=== PATIENT | female | born 1945 | race Caucasian/White ===

== ENCOUNTER → 2019-01-13 | Outpatient (CLI) | payer MEDICARE ==
[~2019-01-13] MED LIST: ASPI81CH PO; ASPI81EC PO; BYETTA; DIGO.125 PO; ELIQUIS5 MG PO; EXEN10PI SQ; EXEN5PENI SQ; FURO20 PO; HYDACE5 PO; IBUP800 PO; LEVSOD175 PO; LORA2 PO; MECL25 PO; MEDR10 PO; METF850 PO; METO100ER PO; MULT50L PO; Norco 5-325 Ta1 EACH PO; OMEP20ER PO; ONDA8ODT MM; ROSU10TA PO; ROSU5 PO; RXLORA1 PO; RXONDA4ODT MM; SANCTURA PO; STOOL SOFTENER; TRAM50 PO; TROSPIUM 60 MG; TROSPIUM CHLORI60 MG PO; VALS80 PO; [UNRECOGNIZED DRUG - OTHER]
[2019-01-13 14:35] LABS: Creatinine, Urine Random 99.7 mg/dL (27.00-270.00); Protein, Urine Random 16.5 mg/dL (0.0-11.9)
== END | disposition home or self-care (01) ==
LOC: LAB 14:11 → LAB SHORT 14:11
PROVIDERS: Internal Medicine
DX: N28.9 Disorder of kidney and ureter, unspecified (principal)
CPT/HCPCS: 82570; 84156

== ENCOUNTER 2019-10-18 18:30 | Emergency (ER) | payer MEDICARE ==
[~2019-10-18] VITALS: Ht 172.7 cm; Wt 136.1 kg
[~2019-10-18 18:30] MED LIST changes: -DIGO.125 PO; +LANOXIN125 MCG PO; +SYNTHROID175 MCG PO
[2019-10-18] MEDS ORDERED: NITROGLYCERIN0.4 MG SL (19:40)
[2019-10-18] MEDS ORDERED: JARDIANCE10 MG PO (19:40)
[2019-10-18] MEDS ORDERED: LIRA0.6P SC (19:40)
[2019-10-18] MEDS ORDERED: Metformin HCl1000 MG PO (19:41)
[2019-10-18] MEDS ORDERED: ACYCLOVIR400 MG PO (19:41)
[2019-10-18] MEDS ORDERED: Spironolactone25 MG PO (19:41)
[2019-10-18] MEDS ORDERED: PIOG15 PO (19:45)
[2019-10-18] MEDS ORDERED: LOSARTAN POTAS100 MG PO (19:46)
[2019-10-18] MEDS ORDERED: TROSPIUM CHLORI20 MG PO (19:46)
[2019-10-18] MEDS ORDERED: Oysco-500500 MG PO (19:47)
[2019-10-18] MEDS ORDERED: MULTIPLE VITAM1 EACH PO (19:48)
[2019-10-18] MEDS ORDERED: ASCO500 PO (19:48)
[2019-10-18] MEDS ORDERED: Vitamin D2000 UNIT PO (19:49)
[2019-10-18] MEDS ORDERED: DOCU100 PO (19:49)
== END 2019-10-18 20:52 | disposition home or self-care (01) ==
LOC: ER 18:30
DX: S02.2XXA Fracture of nasal bones, initial encounter for closed fracture (principal); R58 Hemorrhage, not elsewhere classified; I10 Essential (primary) hypertension; E11.9 Type 2 diabetes mellitus without complications; E03.9 Hypothyroidism, unspecified; I48.91 Unspecified atrial fibrillation; Z88.8 Allergy status to other drugs, medicaments and biological substances; Z88.0 Allergy status to penicillin; Z88.2 Allergy status to sulfonamides; Z88.1 Allergy status to other antibiotic agents; Z79.899 Other long term (current) drug therapy; Z79.84 Long term (current) use of oral hypoglycemic drugs; Z79.01 Long term (current) use of anticoagulants; Z79.82 Long term (current) use of aspirin; W01.10XA Fall on same level from slipping, tripping and stumbling with subsequent striking against unspecified object, initial encounter
CPT/HCPCS: 70450; 72125; 99284-25; L0160

== ENCOUNTER 2019-10-21 10:23 | Day surgery (SDC) | payer MEDICARE ==
[~2019-10-21] VITALS: Ht 172.7 cm; Wt 137.9 kg
[~2019-10-21 10:23] MED LIST changes: +ACYCLOVIR400 MG PO; +ASCO500 PO; +DOCU100 PO; +JARDIANCE10 MG PO; +LIRA0.6P SC; +LOSARTAN POTAS100 MG PO; +MULTIPLE VITAM1 EACH PO; +Metformin HCl1000 MG PO; +NITROGLYCERIN0.4 MG SL; +Oysco-500500 MG PO; +PIOG15 PO; +Spironolactone25 MG PO; +TROSPIUM CHLORI20 MG PO; +Vitamin D2000 UNIT PO
== END 2019-10-21 13:59 | disposition home or self-care (01) ==
LOC: ORSCSDS 10:23
PROVIDERS: Otolaryngology
PROC: 0NSBXZZ Reposition Nasal Bone, External Approach (ICD-10-PCS; principal; 2019-10-21 12:00)
DX: S02.2XXA Fracture of nasal bones, initial encounter for closed fracture (principal); I10 Essential (primary) hypertension; E11.9 Type 2 diabetes mellitus without complications; E03.9 Hypothyroidism, unspecified; G47.33 Obstructive sleep apnea (adult) (pediatric); I50.9 Heart failure, unspecified; E66.01 Morbid (severe) obesity due to excess calories; Z68.42 Body mass index [BMI] 45.0-49.9, adult; Z79.01 Long term (current) use of anticoagulants; Z79.84 Long term (current) use of oral hypoglycemic drugs; Z79.899 Other long term (current) drug therapy
CPT/HCPCS: 82947; C9046; J1100; J2001; J2405; J2704; J3010; J7120

== ENCOUNTER 2021-01-14 11:28 | Emergency (ER) | payer MEDICARE ==
[~2021-01-14] VITALS: Ht 170.2 cm; Wt 129.3 kg
== END 2021-01-14 13:49 | disposition home or self-care (01) ==
LOC: ER 11:28
DX: M54.5 Low back pain (principal); I10 Essential (primary) hypertension; E11.9 Type 2 diabetes mellitus without complications; I48.91 Unspecified atrial fibrillation; E03.9 Hypothyroidism, unspecified; Z88.2 Allergy status to sulfonamides; Z88.6 Allergy status to analgesic agent; Z88.0 Allergy status to penicillin; Z88.1 Allergy status to other antibiotic agents; Z79.01 Long term (current) use of anticoagulants; Z79.899 Other long term (current) drug therapy; W18.30XA Fall on same level, unspecified, initial encounter
CPT/HCPCS: 70450; 72100; 72220; 99284-25

== ENCOUNTER 2021-02-25 13:28 | Emergency (ER) | payer MEDICARE ==
[~2021-02-25] VITALS: Ht 170.2 cm; Wt 127.0 kg
[2021-02-25 14:17] LABS: BASOPHILS ABSOLUTE AUTO 0.03 K/mm3 (0.00-0.23); BASOPHILS PERCENT AUTO 1 % (0-2); EOSINOPHILS ABSOLUTE AUTO 0.01 K/mm3 (0.00-0.68); EOSINOPHILS PERCENT AUTO 0 % (0-6); Hematocrit 42.9 % (33.0-51.0); Hemoglobin 14.5 g/dL (11.5-16.0); IMMATURE GRAN ABSOLUTE AUTO 0.05 K/mm3 (0.00-0.10); IMMATURE GRAN PERCENT AUTO 1 % (0-1); LYMPHOCYTES PERCENT AUTO 31 % (21-46); MONOCYTES ABSOLUTE AUTO 0.42 K/mm3 (0.16-1.47); MONOCYTES PERCENT AUTO 8 % (4-13); Mean Corpuscular HGB 28.8 pg (26.0-34.0); Mean Corpuscular HGB Conc 33.8 g/dL (31.5-36.5); Mean Corpuscular Volume 85 fL (80-100); Mean Platelet Volume 9.8 fL (9.1-12.4); NEUTROPHILS ABSOLUTE AUTO 3.05 K/mm3 (1.96-9.15); NEUTROPHILS PERCENT AUTO 59 % (41-73); Platelet Count 216 K/mm3 (150-400); RDW Standard Deviation 40.4 fL (35.1-46.3); Red Blood Cell Count 5.03 M/mm3 (3.80-5.20); White Blood Cell Count 5.16 K/mm3 (4.00-11.30)
[2021-02-25 14:28] LABS: Alanine Aminotransfer (ALT/SGP 32 U/L (12-78); Albumin, Blood 2.5 g/dL (3.4-5.0); Albumin/Globulin Ratio 0.5 (0.8-1.8); Alk Phos 113 U/L (50-136); Anion Gap 8 mmol/L (6-16); Aspartate Aminotrans (AST/SGOT 26 U/L (12-37); Bilirubin, Total 0.6 mg/dL (0.1-1.0); Blood Urea Nitrogen 11 mg/dL (8-24); Bun/Creatinine Ratio 14.8 (12.0-20.0); CO2, Blood 21 mmol/L (21-32); Calcium, Blood 9.6 mg/dL (8.5-10.1); Chloride, Blood 108 mmol/L (98-108); Creatinine, Blood 0.74 mg/dL (0.40-1.00); Globulin, Blood 5.2 g/dL (2.2-4.0); Glomerular Filtration Rate >60 (60-); Glucose, Blood 151 mg/dL (70-99); Potassium, Blood 3.7 mmol/L (3.5-5.5); Sodium, Blood 137 mmol/L (136-145); Total Protein, Blood 7.7 g/dL (6.4-8.2)
== END 2021-02-25 18:14 | disposition home or self-care (01) ==
LOC: ER 13:28
PROVIDERS: Physician Assistant
DX: U07.1 COVID-19 (principal); I10 Essential (primary) hypertension; E11.9 Type 2 diabetes mellitus without complications; I48.91 Unspecified atrial fibrillation; E03.9 Hypothyroidism, unspecified; Z79.01 Long term (current) use of anticoagulants; Z79.84 Long term (current) use of oral hypoglycemic drugs; Z79.899 Other long term (current) drug therapy
CPT/HCPCS: 36415; 71046; 80053; 85025; 99283-25

== ENCOUNTER 2021-02-27 21:37 | Observation (INO) | payer MEDICARE ==
[~2021-02-27] VITALS: Ht 167.6 cm; Wt 127.8 kg
[2021-02-27 22:06] LABS: BASOPHILS ABSOLUTE AUTO 0.04 K/mm3 (0.00-0.23); BASOPHILS PERCENT AUTO 1 % (0-2); EOSINOPHILS ABSOLUTE AUTO 0.09 K/mm3 (0.00-0.68); EOSINOPHILS PERCENT AUTO 1 % (0-6); Hematocrit 42.4 % (33.0-51.0); Hemoglobin 14.2 g/dL (11.5-16.0); Mean Corpuscular HGB 28.5 pg (26.0-34.0); Mean Corpuscular HGB Conc 33.5 g/dL (31.5-36.5); Mean Corpuscular Volume 85 fL (80-100); Mean Platelet Volume 9.6 fL (9.1-12.4); Platelet Count 255 K/mm3 (150-400); RDW Coefficient Variation 12.9 % (11.7-14.2); RDW Standard Deviation 39.9 fL (35.1-46.3); Red Blood Cell Count 4.98 M/mm3 (3.80-5.20); White Blood Cell Count 6.68 K/mm3 (4.00-11.30)
[2021-02-27 22:09] LABS: IMMATURE GRAN ABSOLUTE AUTO 0.08 K/mm3 (0.00-0.10); IMMATURE GRAN PERCENT AUTO 1 % (0-1); LYMPHOCYTES ABSOLUTE AUTO 2.84 K/mm3 (0.84-5.20); LYMPHOCYTES PERCENT AUTO 43 % (21-46); MONOCYTES ABSOLUTE AUTO 0.65 K/mm3 (0.16-1.47); MONOCYTES PERCENT AUTO 10 % (4-13); NEUTROPHILS ABSOLUTE AUTO 2.98 K/mm3 (1.96-9.15); NEUTROPHILS PERCENT AUTO 45 % (41-73)
[2021-02-27 22:19] LABS: Alanine Aminotransfer (ALT/SGP 32 U/L (12-78); Albumin, Blood 2.4 g/dL (3.4-5.0); Albumin/Globulin Ratio 0.5 (0.8-1.8); Alk Phos 112 U/L (50-136); Anion Gap 9 mmol/L (6-16); Aspartate Aminotrans (AST/SGOT 27 U/L (12-37); Bilirubin, Total 0.4 mg/dL (0.1-1.0); Blood Urea Nitrogen 19 mg/dL (8-24); Bun/Creatinine Ratio 20.3 (12.0-20.0); CO2, Blood 22 mmol/L (21-32); Calcium, Blood 10.4 mg/dL (8.5-10.1); Chloride, Blood 106 mmol/L (98-108); Creatinine, Blood 0.94 mg/dL (0.40-1.00); Globulin, Blood 5.3 g/dL (2.2-4.0); Glomerular Filtration Rate >60 (60-); Glucose, Blood 164 mg/dL (70-99); Potassium, Blood 3.7 mmol/L (3.5-5.5); Sodium, Blood 137 mmol/L (136-145); Total Protein, Blood 7.7 g/dL (6.4-8.2)
[2021-02-28 04:20] LABS: Hematocrit 37.4 % (33.0-51.0); Hemoglobin 12.4 g/dL (11.5-16.0); Mean Corpuscular HGB 28.4 pg (26.0-34.0); Mean Corpuscular HGB Conc 33.2 g/dL (31.5-36.5); Mean Corpuscular Volume 86 fL (80-100); Mean Platelet Volume 9.7 fL (9.1-12.4); Platelet Count 218 K/mm3 (150-400); RDW Coefficient Variation 12.8 % (11.7-14.2); RDW Standard Deviation 40.2 fL (35.1-46.3); Red Blood Cell Count 4.37 M/mm3 (3.80-5.20); White Blood Cell Count 5.74 K/mm3 (4.00-11.30)
[2021-02-28 04:40] LABS: Alanine Aminotransfer (ALT/SGP 25 U/L (12-78); Albumin, Blood 2.4 g/dL (3.4-5.0); Albumin/Globulin Ratio 0.6 (0.8-1.8); Alk Phos 90 U/L (50-136); Anion Gap 7 mmol/L (6-16); Aspartate Aminotrans (AST/SGOT 17 U/L (12-37); Bilirubin, Total 0.6 mg/dL (0.1-1.0); Blood Urea Nitrogen 17 mg/dL (8-24); Bun/Creatinine Ratio 21.3 (12.0-20.0); CO2, Blood 24 mmol/L (21-32); Calcium, Blood 9.7 mg/dL (8.5-10.1); Chloride, Blood 109 mmol/L (98-108); Globulin, Blood 4.2 g/dL (2.2-4.0); Glomerular Filtration Rate >60 (60-); Glucose, Blood 164 mg/dL (70-99); Potassium, Blood 3.4 mmol/L (3.5-5.5); Sodium, Blood 140 mmol/L (136-145); Total Protein, Blood 6.6 g/dL (6.4-8.2)
[2021-02-28 05:53] LABS: BASOPHILS ABSOLUTE MAN 0.05 K/mm3 (0.00-0.23); BASOPHILS PERCENT MAN 1 % (0-2); EOSINOPHILS ABSOLUTE MAN 0.05 K/mm3 (0.00-0.68); EOSINOPHILS PERCENT MAN 1 % (0-6); LYMPHOCYTES ABSOLUTE MAN 1.89 K/mm3 (0.84-5.20); LYMPHOCYTES PERCENT MAN 33 % (21-46); MONOCYTES ABSOLUTE MAN 0.45 K/mm3 (0.16-1.47); MONOCYTES PERCENT MAN 8 % (4-13); MYELOCYTE ABSOLUTE MAN 0.05 K/mm3 (0.00-0.00); MYELOCYTE PERCENT MAN 1 % (0-0); NEUTROPHILS ABSOLUTE MAN 3.21 K/mm3 (1.96-9.15); SEG NEUTROPHILS PERCENT MAN 56 % (41-73); TOTAL CELLS COUNTED 100
--- NOTE | 2021-02-28 16:47 | NUR ---
TELEPHONE ORDER GIVEN BY DR. RODARTE FOR [employer]STATIN CREAM FOR FELIPE YEAST.
--- NOTE | 2021-02-28 17:51 | NUR ---
SHIFT SUMMARY; ASSUMED CARE AT 0700, REPORT FROM SASHA CARDONA. A/A/OX4. SBA IN ROOM THROUGHOUT DAY. REPOSITIONS SELF NEEDED. REMAINS ON RA WITH SATS 97-98%. NO DIARRHEA DURING SHIFT PREVIOUSLY HAD. INSULIN COVERAGE NEEDED. PRODUCTIVE COUGH WITH CLEAR/DIM LUNG SOUNDS. NO ACUTE CHANGES DURING SHIFT. WILL CONTINUE TO MONITOR AND TREAT UNTIL CHANGE OF SHIFT.
[2021-02-28 20:56] LABS: Source, Urine Clean Catch
[2021-02-28 21:00] LABS: Bilirubin, Urine Neg (Neg); Blood, Urine Neg (Neg); Glucose Qualitative, Urine Neg (Neg); Ketones, Urine Neg (Neg); Leukocyte Esterase, Urine 1+ (Neg); Nitrite, Urine Neg (Neg); Protein, Urine Neg (Neg); Specific Gravity, Urine 1.005 (1.003-1.022); Urobilinogen, Urine NORM (Normal)
[2021-02-28 21:48] LABS: Appearance, Urine Clear (Clear); Color, Urine Yellow (P-Yellow)
[2021-02-28 21:50] LABS: Bacteria Few /hpf; Red Blood Cells, Urine 0-2 /hpf (0-2); Squamous Epithelial Cells Few /hpf (Few); Yeast/Fungi Urine Few /hpf
[2021-03-01 04:05] LABS: BASOPHILS ABSOLUTE AUTO 0.04 K/mm3 (0.00-0.23); BASOPHILS PERCENT AUTO 1 % (0-2); EOSINOPHILS ABSOLUTE AUTO 0.13 K/mm3 (0.00-0.68); EOSINOPHILS PERCENT AUTO 2 % (0-6); Hematocrit 36.9 % (33.0-51.0); Hemoglobin 12.6 g/dL (11.5-16.0); Mean Corpuscular HGB 28.8 pg (26.0-34.0); Mean Corpuscular HGB Conc 34.1 g/dL (31.5-36.5); Mean Corpuscular Volume 84 fL (80-100); Mean Platelet Volume 9.6 fL (9.1-12.4); Platelet Count 239 K/mm3 (150-400); RDW Coefficient Variation 12.9 % (11.7-14.2); RDW Standard Deviation 39.8 fL (35.1-46.3); Red Blood Cell Count 4.37 M/mm3 (3.80-5.20); White Blood Cell Count 6.13 K/mm3 (4.00-11.30)
[2021-03-01 04:06] LABS: IMMATURE GRAN ABSOLUTE AUTO 0.12 K/mm3 (0.00-0.10); IMMATURE GRAN PERCENT AUTO 2 % (0-1); LYMPHOCYTES ABSOLUTE AUTO 2.34 K/mm3 (0.84-5.20); LYMPHOCYTES PERCENT AUTO 38 % (21-46); MONOCYTES ABSOLUTE AUTO 0.66 K/mm3 (0.16-1.47); MONOCYTES PERCENT AUTO 11 % (4-13); NEUTROPHILS ABSOLUTE AUTO 2.84 K/mm3 (1.96-9.15); NEUTROPHILS PERCENT AUTO 46 % (41-73)
[2021-03-01 04:39] LABS: Anion Gap 7 mmol/L (6-16); Blood Urea Nitrogen 18 mg/dL (8-24); Bun/Creatinine Ratio 24.3 (12.0-20.0); CO2, Blood 22 mmol/L (21-32); Calcium, Blood 10.2 mg/dL (8.5-10.1); Chloride, Blood 112 mmol/L (98-108); Creatinine, Blood 0.74 mg/dL (0.40-1.00); Glomerular Filtration Rate >60 (60-); Glucose, Blood 201 mg/dL (70-99); Potassium, Blood 3.6 mmol/L (3.5-5.5); Sodium, Blood 141 mmol/L (136-145)
--- NOTE | 2021-03-01 05:52 | NUR ---
SHIFT SUMMARY PT WAS ALERT, ORIENTED AND COOPERATIVE WITH CARE. PT WAS INDEPENDENT IN THE ROOM AMBULATING WITH THE WALKER FOR SUPPORT. VITALS WERE STABLE WITH BP IN THE 120'S SYSTOLIC. HR 80'S. O2 SATS >95% ON ROOM AIR. PT ON HOME CPAP WHEN SLEEPING. PT HAD A QUIET UNEVENTFUL NIGHT.
[2021-03-01] MEDS ORDERED: ACET325 PO (14:12)
[2021-03-01] MEDS ORDERED: LOPE2C PO (14:13)
[2021-03-01] MEDS ORDERED: NYSTRIT TOP (14:13)
[2021-03-01] MEDS ORDERED: XARELTO10 M1 PO (14:14)
[2021-03-01] MEDS ORDERED: Q-Tussin100 MG/5 M PO (14:32)
--- NOTE | 2021-03-01 15:32 | NUR ---
PT STS THAT SHE HAS MEDICATIONS AT HOME AND STS THAT SHE DOES NOT WANT HER RX SENT IN FOR THIS REASON
--- NOTE | 2021-03-01 15:56 | NUR ---
PT REMINDED THAT SHE MAY CALL IF SHE WOULD LIKE TO HAVE US FAX HER MEDICATIONS IN AFTER ALL PT EXPRESSED UNDERSTANDING. IV REMOVED, PRESSURE DRESSING APPLIED. PT EXPRESSED UNDERSTANDING OF D/C INSTRUCTIONS
== END 2021-03-01 13:50 | disposition home or self-care (01) ==
LOC: ER 21:37 → PCU 21:38 → ER 02-28 01:38 → PCU 02-28 01:38
PROVIDERS: Emergency Medicine; Internal Medicine; ADMIT Internal Medicine
DX: U07.1 COVID-19 (principal); J12.82 Pneumonia due to coronavirus disease 2019; R06.03 Acute respiratory distress; R09.02 Hypoxemia; K52.9 Noninfective gastroenteritis and colitis, unspecified; E86.0 Dehydration; R80.9 Proteinuria, unspecified; I10 Essential (primary) hypertension; E11.9 Type 2 diabetes mellitus without complications; I48.91 Unspecified atrial fibrillation; E03.9 Hypothyroidism, unspecified; Z88.6 Allergy status to analgesic agent; Z88.1 Allergy status to other antibiotic agents; Z88.0 Allergy status to penicillin; Z88.2 Allergy status to sulfonamides; Z88.8 Allergy status to other drugs, medicaments and biological substances; Z79.01 Long term (current) use of anticoagulants; Z79.4 Long term (current) use of insulin
CPT/HCPCS: 36415; 71045; 80048; 80053; 81001; 82947; 83880; 84439; 84443; 85025; 87086; 94762; 96361; 96365; 97110; 97161; 97165; 97530; 97535; 99285-25; A9270; G0378; J1650; J7030; P9046

== ENCOUNTER 2024-06-22 15:34 | Emergency (ER) | payer MEDICARE ==
[~2024-06-22] VITALS: Ht 172.7 cm; Wt 129.3 kg
[~2024-06-22 15:34] MED LIST changes: +ACET325 PO; +LOPE2C PO; +NYSTRIT TOP; +Q-Tussin100 MG/5 M PO; +XARELTO10 M1 PO
[2024-06-22 15:39] VITALS: BP 174/99
[2024-06-22 16:02] LABS: BASOPHILS ABSOLUTE AUTO 0.07 K/mm3 (0.00-0.23); BASOPHILS PERCENT AUTO 1 % (0-2); EOSINOPHILS ABSOLUTE AUTO 0.19 K/mm3 (0.00-0.68); EOSINOPHILS PERCENT AUTO 2 % (0-6); Hematocrit 41.6 % (33.0-51.0); Hemoglobin 13.4 g/dL (11.5-16.0); IMMATURE GRAN ABSOLUTE AUTO 0.03 K/mm3 (0.00-0.10); IMMATURE GRAN PERCENT AUTO 0 % (0-1); LYMPHOCYTES ABSOLUTE AUTO 2.58 K/mm3 (0.84-5.20); LYMPHOCYTES PERCENT AUTO 32 % (21-46); MONOCYTES PERCENT AUTO 9 % (4-13); Mean Corpuscular HGB 29.1 pg (26.0-34.0); Mean Corpuscular HGB Conc 32.2 g/dL (31.5-36.5); Mean Corpuscular Volume 90 fL (80-100); Mean Platelet Volume 9.9 fL (9.1-12.4); NEUTROPHILS ABSOLUTE AUTO 4.47 K/mm3 (1.96-9.15); NEUTROPHILS PERCENT AUTO 56 % (41-73); Platelet Count 213 K/mm3 (150-400); RDW Coefficient Variation 14.1 % (11.7-14.2); RDW Standard Deviation 46.5 fL (35.1-46.3); Red Blood Cell Count 4.61 M/mm3 (3.80-5.20); White Blood Cell Count 8.04 K/mm3 (4.00-11.30)
[2024-06-22 16:21] LABS: Albumin, Blood 3.1 g/dL (3.4-5.0); Albumin/Globulin Ratio 0.7 (0.8-1.8); Bilirubin, Total 0.7 mg/dL (0.1-1.0); Bun/Creatinine Ratio 19.3 (12.0-20.0); Calcium, Blood 9.2 mg/dL (8.5-10.1); Creatinine, Blood 1.14 mg/dL (0.40-1.00); Globulin, Blood 4.2 g/dL (2.2-4.0); Potassium, Blood 4.2 mmol/L (3.5-5.5); Total Protein, Blood 7.3 g/dL (6.4-8.2)
[2024-06-22] MEDS ORDERED: Furosemide 10 MG / ML 2ML Vial IV ONE (17:05)
[2024-06-22 17:33] LABS: Influenza A, PCR NEGATIVE (NEGATIVE); Influenza B, PCR NEGATIVE (NEGATIVE); Resp Syncytial Virus, PCR NEGATIVE (NEGATIVE); SARS-Cov-2 (COVID-19) PCR, MMC NEGATIVE (NEGATIVE)
== END 2024-06-22 18:30 | disposition home or self-care (01) ==
LOC: ER 15:34
PROVIDERS: Physician Assistant
DX: I11.0 Hypertensive heart disease with heart failure (principal); I50.30 Unspecified diastolic (congestive) heart failure; E11.9 Type 2 diabetes mellitus without complications; E03.9 Hypothyroidism, unspecified; Z88.0 Allergy status to penicillin; Z88.2 Allergy status to sulfonamides; Z88.1 Allergy status to other antibiotic agents; Z88.8 Allergy status to other drugs, medicaments and biological substances; Z79.899 Other long term (current) drug therapy; Z79.890 Hormone replacement therapy; Z79.01 Long term (current) use of anticoagulants; Z79.84 Long term (current) use of oral hypoglycemic drugs; Z11.52 Encounter for screening for COVID-19
CPT/HCPCS: 0241U; 71046; 80053; 83880; 85025; 93005; 93010; 96374; 99285-25; J1940

== ENCOUNTER 2024-11-09 11:59 | Emergency (ER) | payer MEDICARE ==
[~2024-11-09] VITALS: Ht 175.3 cm; Wt 108.4 kg
[2024-11-09 12:11] VITALS: BP 149/102
== END 2024-11-09 13:13 | disposition home or self-care (01) ==
LOC: ER 11:59
DX: S00.33XA Contusion of nose, initial encounter (principal); I10 Essential (primary) hypertension; E11.9 Type 2 diabetes mellitus without complications; I48.91 Unspecified atrial fibrillation; E03.9 Hypothyroidism, unspecified; W10.1XXA Fall (on)(from) sidewalk curb, initial encounter; Z79.84 Long term (current) use of oral hypoglycemic drugs; Z79.899 Other long term (current) drug therapy; Z88.0 Allergy status to penicillin; Z88.2 Allergy status to sulfonamides; Z91.048 Other nonmedicinal substance allergy status
CPT/HCPCS: 70450; 99284-25

== ENCOUNTER 2024-11-29 14:45 | Emergency (ER) | payer MEDICARE ==
[~2024-11-29] VITALS: Ht 167.6 cm; Wt 99.8 kg
[~2024-11-29 14:45] MED LIST changes: -Macrobid 100 M100 MG PO
[2024-11-29 16:11] VITALS: BP 155/66
[2024-11-29 17:34] LABS: Source, Urine Clean Catch
[2024-11-29 17:38] LABS: Appearance, Urine Clear (Clear); Bilirubin, Urine Neg (Neg); Blood, Urine 4+ (Neg); Color, Urine Yellow (P-Yellow); Glucose Qualitative, Urine 4+ (Neg); Ketones, Urine Neg (Neg); Leukocyte Esterase, Urine 1+ (Neg); Nitrite, Urine Neg (Neg); Protein, Urine 1+ (Neg); Urobilinogen, Urine NORM (Normal)
[2024-11-29 17:48] LABS: Bacteria Few /hpf; Squamous Epithelial Cells Few /hpf (Few); Yeast/Fungi Urine Rare /hpf
[2024-11-29] MEDS ORDERED: Nitrofurantoin/Nitrofuran Mac 100 MG Cap PO ONE (19:05)
[2024-11-29] MEDS ORDERED: Macrobid 100 M100 MG PO (19:06)
== END 2024-11-29 19:25 | disposition home or self-care (01) ==
LOC: ER 14:45
PROVIDERS: Emergency Medicine
DX: N39.0 Urinary tract infection, site not specified (principal); I10 Essential (primary) hypertension; E11.9 Type 2 diabetes mellitus without complications; E03.9 Hypothyroidism, unspecified; Z79.899 Other long term (current) drug therapy; Z79.84 Long term (current) use of oral hypoglycemic drugs; Z88.0 Allergy status to penicillin; Z88.2 Allergy status to sulfonamides; Z88.1 Allergy status to other antibiotic agents; Z88.8 Allergy status to other drugs, medicaments and biological substances; N17.9 Acute kidney failure, unspecified; N26.1 Atrophy of kidney (terminal)
CPT/HCPCS: 76770; 81001; 87086; 87147; 99281; A9270

== ENCOUNTER → 2024-11-29 | Outpatient (CLI) | payer MEDICARE ==
[~2024-11-29] MED LIST changes: +Macrobid 100 M100 MG PO
[2024-11-29 08:16] LABS: Source, Urine Clean Catch
[2024-11-29 10:37] LABS: Appearance, Urine Hazy (Clear); Bilirubin, Urine Neg (Neg); Blood, Urine 5+ (Neg); Color, Urine Yellow (P-Yellow); Glucose Qualitative, Urine 4+ (Neg); Ketones, Urine Neg (Neg); Leukocyte Esterase, Urine 1+ (Neg); Nitrite, Urine Neg (Neg); Protein, Urine 2+ (Neg); Specific Gravity, Urine 1.015 (1.003-1.022); Urobilinogen, Urine NORM (Normal)
[2024-11-29 11:57] LABS: Bacteria Rare /hpf; Red Blood Cells, Urine 50-100 /hpf (0-2); Squamous Epithelial Cells Mod /hpf (Few)
== END ==
LOC: LAB 08:15 → LAB SHORT 08:15
PROVIDERS: Internal Medicine
DX: N17.9 Acute kidney failure, unspecified (principal)
CPT/HCPCS: 81001; 87086

== ENCOUNTER → 2024-12-07 | Outpatient (CLI) | payer MEDICARE ==
[~2024-12-07] MED LIST changes: +Macrobid 100 M100 MG PO
[2024-12-07 10:21] LABS: Source, Urine Clean Catch
[2024-12-07 13:24] LABS: Appearance, Urine Clear (Clear); Bilirubin, Urine Neg (Neg); Blood, Urine 2+ (Neg); Color, Urine Yellow (P-Yellow); Glucose Qualitative, Urine 4+ (Neg); Ketones, Urine Neg (Neg); Leukocyte Esterase, Urine 1+ (Neg); Nitrite, Urine Neg (Neg); Protein, Urine 1+ (Neg); Specific Gravity, Urine 1.015 (1.003-1.022); Urobilinogen, Urine NORM (Normal)
[2024-12-07 13:35] LABS: Bacteria Mod /hpf; Squamous Epithelial Cells Few /hpf (Few)
== END ==
LOC: LAB 10:20 → LAB SHORT 10:20 → LAB FUT 12-02 08:55
PROVIDERS: Internal Medicine
DX: N39.0 Urinary tract infection, site not specified (principal)
CPT/HCPCS: 81001; 87086; 87147

== ENCOUNTER 2024-12-13 10:39 | Emergency (ER) | payer MEDICARE ==
[~2024-12-13] VITALS: Ht 170.2 cm; Wt 102.5 kg
[2024-12-13 11:05] VITALS: BP 145/74
== END 2024-12-13 14:19 | disposition home or self-care (01) ==
LOC: ER 10:39
DX: K59.00 Constipation, unspecified (principal); I10 Essential (primary) hypertension; E11.9 Type 2 diabetes mellitus without complications; I48.91 Unspecified atrial fibrillation; E03.9 Hypothyroidism, unspecified; Z88.0 Allergy status to penicillin; Z88.2 Allergy status to sulfonamides; Z88.6 Allergy status to analgesic agent; Z88.1 Allergy status to other antibiotic agents; Z88.8 Allergy status to other drugs, medicaments and biological substances; Z79.890 Hormone replacement therapy; Z79.01 Long term (current) use of anticoagulants; Z79.84 Long term (current) use of oral hypoglycemic drugs; Z79.899 Other long term (current) drug therapy; Z59.89 Other problems related to housing and economic circumstances
CPT/HCPCS: 74018; 99283-25

== ENCOUNTER → 2025-06-23 | Outpatient (CLI) | payer MEDICARE ==
[2025-06-29 20:45] LABS: ALBUMIN %,URINE 100.0 %; ALPHA-1 %,URINE 0.0 %; ALPHA-2 %,URINE 0.0 %; BETA GLOBULIN %,URINE 0.0 %; GAMMA GLOBULIN %,URINE 0.0 %; HOURS COLLECTED 24 hr; PARAPROTEIN %,URINE 0.0 %; PARAPROTEIN EXCRETION/24 HOUR 0.0
== END ==
LOC: LAB SHORT 07:00 → LAB 07:00 → LAB FUT 06-20 13:50
PROVIDERS: Internal Medicine Cardiovascular Disease
DX: I50.30 Unspecified diastolic (congestive) heart failure (principal); I48.21 Permanent atrial fibrillation; R77.9 Abnormality of plasma protein, unspecified; D47.2 Monoclonal gammopathy
CPT/HCPCS: 81050; 84156; 84166; 86335

== ENCOUNTER 2025-08-04 08:19 | Observation (INO) | payer MEDICARE ==
[~2025-08-04] VITALS: Ht 172.7 cm; Wt 105.7 kg
[2025-08-04 08:54] LABS: BASOPHILS ABSOLUTE AUTO 0.09 K/mm3 (0.00-0.23); BASOPHILS PERCENT AUTO 2 % (0-2); EOSINOPHILS ABSOLUTE AUTO 0.19 K/mm3 (0.00-0.68); EOSINOPHILS PERCENT AUTO 4 % (0-6); Hematocrit 40.6 % (33.0-51.0); Hemoglobin 13.1 g/dL (11.5-16.0); IMMATURE GRAN ABSOLUTE AUTO 0.02 K/mm3 (0.00-0.10); IMMATURE GRAN PERCENT AUTO 0 % (0-1); LYMPHOCYTES ABSOLUTE AUTO 1.41 K/mm3 (0.84-5.20); LYMPHOCYTES PERCENT AUTO 28 % (21-46); MONOCYTES ABSOLUTE AUTO 0.46 K/mm3 (0.16-1.47); MONOCYTES PERCENT AUTO 9 % (4-13); Mean Corpuscular HGB Conc 32.3 g/dL (31.5-36.5); Mean Corpuscular Volume 87 fL (80-100); NEUTROPHILS ABSOLUTE AUTO 2.94 K/mm3 (1.96-9.15); NEUTROPHILS PERCENT AUTO 58 % (41-73); NRBC ABSOLUTE 0.00 K/mm3 (0.00-0.02); NRBC Auto 0.0 /100 WBC (0.0-0.2); Platelet Count 235 K/mm3 (150-400); RDW Coefficient Variation 15.0 % (11.7-14.2); RDW Standard Deviation 47.5 fL (35.1-46.3)
[2025-08-04 09:19] LABS: Alanine Aminotransfer (ALT/SGP 51.0 U/L (12-78); Albumin, Blood 3.2 g/dL (3.4-5.0); Albumin/Globulin Ratio 0.8 (0.8-1.8); Anion Gap 9.0 mmol/L (3-11); Aspartate Aminotrans (AST/SGOT 23.0 U/L (12-37); Bilirubin, Total 0.6 mg/dL (0.1-1.0); Blood Urea Nitrogen 35.0 mg/dL (8-24); CO2, Blood 23.0 mmol/L (21-32); Calcium, Blood 9.4 mg/dL (8.5-10.1); Chloride, Blood 108.0 mmol/L (98-108); Creatinine, Blood 1.76 mg/dL (0.40-1.00); Globulin, Blood 4.0 g/dL (2.2-4.0); Glucose, Blood 169.0 mg/dL (70-99); Potassium, Blood 3.9 mmol/L (3.5-5.5); Sodium, Blood 136.0 mmol/L (136-145); Total Protein, Blood 7.2 g/dL (6.4-8.2)
--- NOTE | 2025-08-04 09:51 | NUR ---
Pt. is awake in bed in ED3 when the Pt. welcomed my visit. Family are at bedside. Pt. is known to this resp therapist from the community. Facilitated an update. Pt. displayed some level of anxiety as she recalled coming to the hospital in an ambulance. Prayed with Pt. Pt. verbalized gratittude for the spiritual care visit. Will remain available to the Pt.
[2025-08-04 13:54] VITALS: BP 137/69
[2025-08-04] MEDS ORDERED: DIGOX125 MC1 PO (15:22)
[2025-08-04] MEDS ORDERED: FURO20 PO (15:22)
[2025-08-04] MEDS ORDERED: METO100ER PO (15:24)
[2025-08-04] MEDS ORDERED: OZEMPIC1 MG/0.72 SC (15:30)
[2025-08-04] MEDS ORDERED: INSULANI SC (15:31)
[2025-08-04] MEDS ORDERED: Norethindrone Ac5 MG PO (15:32)
[2025-08-04] MEDS ORDERED: DILT120ERA PO (15:32)
[2025-08-04 16:56] VITALS: BP 149/103
--- NOTE | 2025-08-04 17:01 | NUR ---
Patient arrived to room 341 via gurney from ER at 1350. Patient able to ambulate to bed with standby assist. Patient denied SOB, CP/Pressure, N/V/D or pain upon arrival. Patient was placed on Telemetry with recording of A-fib at 85. Patient and family oriented to room and call light. Call light within reach and bed in lowest position. 1357: Received call from Aida in Lab with Troponin 173 (). Dr. Méndez notified at 1416. 1647: Medication reconciliation completed and Dr. Figueroa notified.
[2025-08-04 17:07] VITALS: BP 135/80
[2025-08-04 17:17] VITALS: BP 150/96
[2025-08-04 19:29] VITALS: BP 151/80
[2025-08-04] MEDS ORDERED: Insulin Glargine,Hum.Rec.Anlog 100 UNIT/ML 3MLSYR SC SCH (21:00)
[2025-08-04 21:09] LABS: Magnesium, Blood 2.3 mg/dL (1.6-2.4)
[2025-08-04 23:47] VITALS: BP 152/86
--- NOTE | 2025-08-05 02:51 | NUR ---
SHIFT SUMMARY NO ACUTE EVENTS DURING THIS SHIFT. PT DENIES CP/PRESSURE AND PAIN AND DISCOMFORT. CPAP AT NIGHT, CONT PULSE OXIMETER O2 SAT'S>98% ON RA. HS B, INSULIN ADMINISTERED ORDERED. SBA WITH FWW TO THE RESTROOM. UP ABOUT X5 TO THE RESTROOM DURING NIGHT HRS. CONTINENT. PT IS A/O X4, ABLE TO MAKE HER NEEDS KNOWN AND COOPERATIVE WITH CARE. HS MEDS ADMINISTERED WITH H20, VSS. BED AT THE LOWEST POSITION, CALL LIGHT W/I REACH.
[2025-08-05 03:49] VITALS: BP 162/101
--- NOTE | 2025-08-05 04:44 | NUR ---
@9732 THIS MEDICAL AUTHORIZATION SPECIALIST CONTACTED THE RESIDENT R/T PER COMPUTER FORENSICS ANALYST PT HAD 8BOAT RUN ON [employer] @3053. NO NEW ORDERS FROM THE RESIDENT.
--- NOTE | 2025-08-05 04:45 | NUR ---
@4704 THIS TRUCK CLEANER CALLED THE ON-CALL RESIDENT DR. JONES, R/T PT'S BP ELEVATED. PER CONVERSTATION, KEEP MONITORING SINCE THE PT WILL GET THE HOME MEDICATIONS TODAY. IF BP >180, RESIDENT COULD PUT SOMETHING IN ORDER. CONTINUE TO MONITOR-ORDER.
[2025-08-05] MEDS ORDERED: Levothyroxine Sodium 0.175 MG TAB PO SCH (06:00)
[2025-08-05 06:04] LABS: BASOPHILS ABSOLUTE AUTO 0.08 K/mm3 (0.00-0.23); BASOPHILS PERCENT AUTO 1 % (0-2); EOSINOPHILS ABSOLUTE AUTO 0.21 K/mm3 (0.00-0.68); EOSINOPHILS PERCENT AUTO 3 % (0-6); Hematocrit 42.7 % (33.0-51.0); Hemoglobin 13.8 g/dL (11.5-16.0); IMMATURE GRAN ABSOLUTE AUTO 0.02 K/mm3 (0.00-0.10); IMMATURE GRAN PERCENT AUTO 0 % (0-1); LYMPHOCYTES ABSOLUTE AUTO 2.32 K/mm3 (0.84-5.20); LYMPHOCYTES PERCENT AUTO 32 % (21-46); MONOCYTES ABSOLUTE AUTO 0.63 K/mm3 (0.16-1.47); MONOCYTES PERCENT AUTO 9 % (4-13); Mean Corpuscular HGB Conc 32.3 g/dL (31.5-36.5); Mean Corpuscular Volume 88 fL (80-100); NEUTROPHILS ABSOLUTE AUTO 3.97 K/mm3 (1.96-9.15); NEUTROPHILS PERCENT AUTO 55 % (41-73); NRBC ABSOLUTE 0.00 K/mm3 (0.00-0.02); NRBC Auto 0.0 /100 WBC (0.0-0.2); Platelet Count 211 K/mm3 (150-400); RDW Coefficient Variation 15.0 % (11.7-14.2); RDW Standard Deviation 48.0 fL (35.1-46.3)
[2025-08-05 06:27] LABS: Alanine Aminotransfer (ALT/SGP 46.0 U/L (12-78); Albumin, Blood 3.1 g/dL (3.4-5.0); Albumin/Globulin Ratio 0.8 (0.8-1.8); Anion Gap 10.0 mmol/L (3-11); Aspartate Aminotrans (AST/SGOT 21.0 U/L (12-37); Bilirubin, Total 0.8 mg/dL (0.1-1.0); Blood Urea Nitrogen 37.0 mg/dL (8-24); CO2, Blood 23.0 mmol/L (21-32); Calcium, Blood 10.0 mg/dL (8.5-10.1); Chloride, Blood 106.0 mmol/L (98-108); Creatinine, Blood 1.72 mg/dL (0.40-1.00); Globulin, Blood 3.8 g/dL (2.2-4.0); Glucose, Blood 168.0 mg/dL (70-99); Potassium, Blood 4.0 mmol/L (3.5-5.5); Sodium, Blood 135.0 mmol/L (136-145); Total Protein, Blood 6.9 g/dL (6.4-8.2)
[2025-08-05 07:19] VITALS: BP 157/71
[2025-08-05] MEDS ORDERED: Insulin Human Lispro 100 Units/ML 3ML Syringe SC SCH (07:30)
--- NOTE | 2025-08-05 11:32 | NUR ---
Patient CBG/Blood sugar reading was 360 at 1120am. Administered 5u per sliding scale insulin. Call to Dr. Figueroa with update of above per orders; no new changes or orders obtained.
--- NOTE | 2025-08-05 13:19 | NUR ---
1315 discharged home with daughter via private vehicle
== END 2025-08-05 13:15 | disposition home health service (06) ==
LOC: ER 08:19 → MEDS 08:20 → ER 13:45 → MEDS 13:55 → ENPENDDIS 08-05 11:54 → MEDS 08-05 13:15
PROVIDERS: Emergency Medicine; ADMIT Internal Medicine
DX: R53.1 Weakness (principal); R79.89 Other specified abnormal findings of blood chemistry; N18.4 Chronic kidney disease, stage 4 (severe); E11.22 Type 2 diabetes mellitus with diabetic chronic kidney disease; E11.42 Type 2 diabetes mellitus with diabetic polyneuropathy; E03.9 Hypothyroidism, unspecified; I12.9 Hypertensive chronic kidney disease with stage 1 through stage 4 chronic kidney disease, or unspecified chronic kidney disease; I48.20 Chronic atrial fibrillation, unspecified; K21.9 Gastro-esophageal reflux disease without esophagitis; R60.0 Localized edema; R42 Dizziness and giddiness; Z88.0 Allergy status to penicillin; Z88.2 Allergy status to sulfonamides; Z88.6 Allergy status to analgesic agent; Z88.8 Allergy status to other drugs, medicaments and biological substances; Z79.4 Long term (current) use of insulin; Z79.01 Long term (current) use of anticoagulants; Z79.890 Hormone replacement therapy; Z79.899 Other long term (current) drug therapy; W18.39XA Other fall on same level, initial encounter
CPT/HCPCS: 36415; 80053; 80162; 82947; 83735; 84484; 85025; 93005; 93010; 94760; 94762; 99285-25; A9270; G0378; J1815

== ENCOUNTER → 2025-08-17 | Outpatient (CLI) | payer MEDICARE ==
[~2025-08-17] MED LIST changes: +DIGOX125 MC1 PO; +DILT120ERA PO; +INSULANI SC; +Norethindrone Ac5 MG PO; +OZEMPIC1 MG/0.72 SC
== END ==
LOC: LAB SHORT 09:57 → LAB 09:57
DX: D48.9 Neoplasm of uncertain behavior, unspecified (principal)
CPT/HCPCS: 88305; 88313

== ENCOUNTER 2025-08-24 19:07 | Emergency (ER) | payer MEDICARE ==
[~2025-08-24] VITALS: Ht 172.7 cm; Wt 104.3 kg
[2025-08-24 19:32] LABS: BASOPHILS ABSOLUTE AUTO 0.08 K/mm3 (0.00-0.23); BASOPHILS PERCENT AUTO 1 % (0-2); EOSINOPHILS ABSOLUTE AUTO 0.25 K/mm3 (0.00-0.68); EOSINOPHILS PERCENT AUTO 3 % (0-6); Hematocrit 39.8 % (33.0-51.0); Hemoglobin 13.1 g/dL (11.5-16.0); IMMATURE GRAN ABSOLUTE AUTO 0.05 K/mm3 (0.00-0.10); IMMATURE GRAN PERCENT AUTO 1 % (0-1); LYMPHOCYTES ABSOLUTE AUTO 2.75 K/mm3 (0.84-5.20); LYMPHOCYTES PERCENT AUTO 32 % (21-46); MONOCYTES ABSOLUTE AUTO 0.81 K/mm3 (0.16-1.47); MONOCYTES PERCENT AUTO 10 % (4-13); Mean Corpuscular HGB Conc 32.9 g/dL (31.5-36.5); Mean Corpuscular Volume 88 fL (80-100); NEUTROPHILS ABSOLUTE AUTO 4.58 K/mm3 (1.96-9.15); NEUTROPHILS PERCENT AUTO 54 % (41-73); NRBC ABSOLUTE 0.00 K/mm3 (0.00-0.02); NRBC Auto 0.0 /100 WBC (0.0-0.2); Platelet Count 223 K/mm3 (150-400); RDW Coefficient Variation 14.6 % (11.7-14.2); RDW Standard Deviation 47.5 fL (35.1-46.3)
[2025-08-24 19:51] LABS: Alanine Aminotransfer (ALT/SGP 48.0 U/L (12-78); Albumin, Blood 3.0 g/dL (3.4-5.0); Albumin/Globulin Ratio 0.7 (0.8-1.8); Anion Gap 11.0 mmol/L (3-11); Aspartate Aminotrans (AST/SGOT 25.0 U/L (12-37); Bilirubin, Total 0.6 mg/dL (0.1-1.0); Blood Urea Nitrogen 49.0 mg/dL (8-24); CO2, Blood 24.0 mmol/L (21-32); Calcium, Blood 8.9 mg/dL (8.5-10.1); Chloride, Blood 103.0 mmol/L (98-108); Creatinine, Blood 2.35 mg/dL (0.40-1.00); Globulin, Blood 4.1 g/dL (2.2-4.0); Glucose, Blood 382.0 mg/dL (70-99); Potassium, Blood 4.5 mmol/L (3.5-5.5); Sodium, Blood 133.0 mmol/L (136-145); Total Protein, Blood 7.1 g/dL (6.4-8.2)
[2025-08-24] MEDS ORDERED: NS 1,000 ML IV SCH (20:25)
[2025-08-24 20:34] LABS: Source, Urine Voided
[2025-08-24 20:36] LABS: Bilirubin, Urine Neg (Neg); Glucose Qualitative, Urine 4+ (Neg); Ketones, Urine Neg (Neg); Leukocyte Esterase, Urine 1+ (Neg); Protein, Urine 1+ (Neg); Specific Gravity, Urine 1.015 (1.003-1.022); Urobilinogen, Urine NORM (Normal)
[2025-08-24 20:53] LABS: Color, Urine Yellow (P-Yellow)
[2025-08-24 20:54] LABS: Red Blood Cells, Urine 0-2 /hpf (0-2)
[2025-08-24 22:32] VITALS: BP 146/75
== END 2025-08-24 22:35 | disposition home or self-care (01) ==
LOC: ER 19:07
PROVIDERS: Student in an Organized Health Care Education/Training Program
DX: R55 Syncope and collapse (principal); I12.9 Hypertensive chronic kidney disease with stage 1 through stage 4 chronic kidney disease, or unspecified chronic kidney disease; E11.22 Type 2 diabetes mellitus with diabetic chronic kidney disease; N18.9 Chronic kidney disease, unspecified; I48.91 Unspecified atrial fibrillation; Z88.0 Allergy status to penicillin; Z79.2 Long term (current) use of antibiotics; Z79.899 Other long term (current) drug therapy
CPT/HCPCS: 71045; 80053; 81001; 84484; 85025; 87086; 87147; 93005; 93010; 96360; 99284-25; J7030